=== PATIENT | female | born 2000 | race African-American/Black ===

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

== ENCOUNTER 2020-01-06 04:05 | Emergency (ER) | payer MEDICAID ==
[~2020-01-06] VITALS: Ht 167.6 cm; Wt 61.8 kg
[~2020-01-06 04:05] MED LIST changes: +HYDROCODON-ACE1 EAC7 PO; +IBUPROFEN600 MG PO
[2020-01-06 04:10] VITALS: BP 110/76; Ht 167.6 cm; Wt 61.8 kg
[2020-01-06] MEDS ORDERED: ULTRAM50 MG PO (04:49)
[2020-01-06] MEDS ORDERED: NAPROSYN500 MG PO (04:49)
== END 2020-01-06 05:10 | disposition home or self-care (01) ==
LOC: D.ER 04:05
DX: S43.402A Unspecified sprain of left shoulder joint, initial encounter (principal); S53.402A Unspecified sprain of left elbow, initial encounter; W19.XXXA Unspecified fall, initial encounter; Y93.9 Activity, unspecified; Y92.9 Unspecified place or not applicable

== ENCOUNTER → 2020-09-17 | Emergency (ER) | payer MEDICAID ==
[~2020-09-17] VITALS: Ht 167.6 cm; Wt 61.8 kg
[~2020-09-17] MED LIST changes: +ULTRAM50 MG PO
[2020-09-17 12:28] VITALS: BP 104/47; Ht 167.6 cm; Wt 61.8 kg
== END | disposition home or self-care (01) ==
LOC: D.ER 12:20
DX: S63.502A Unspecified sprain of left wrist, initial encounter (principal); M25.532 Pain in left wrist; W19.XXXA Unspecified fall, initial encounter; Y93.9 Activity, unspecified; Y92.9 Unspecified place or not applicable

== ENCOUNTER 2020-12-08 02:57 | Emergency (ER) | payer MEDICAID ==
[~2020-12-08] VITALS: Ht 167.6 cm; Wt 60.0 kg
[2020-12-08 03:03] VITALS: BP 100/52; Ht 167.6 cm; Wt 60.0 kg
== END 2020-12-08 03:58 | disposition home or self-care (01) ==
LOC: D.ER 02:57
DX: S93.401A Sprain of unspecified ligament of right ankle, initial encounter (principal); W19.XXXA Unspecified fall, initial encounter; M25.571 Pain in right ankle and joints of right foot